=== PATIENT | male | born 1945 | race African-American/Black ===

== ENCOUNTER 2016-06-21 12:04 | Outpatient (CLI) | payer MEDICARE | END 2016-06-21 12:05 | disposition home or self-care (01) | LOC: NAVSJIPCSP 12:04 | PROVIDERS: ATTEND Internal Medicine | DX: E78.5 Hyperlipidemia, unspecified (principal) | CPT/HCPCS: 80061 ==

== ENCOUNTER 2016-09-30 09:16 | Outpatient (CLI) | payer MEDICARE ==
[2016-09-30 10:27] LABS: Cardiac Risk 2.9 (Less than 4.5)
== END 2016-09-30 09:17 | disposition home or self-care (01) ==
LOC: NAVSJIPCSP 09:16 → NAV LAB 09:17
PROVIDERS: ATTEND Internal Medicine
DX: E78.5 Hyperlipidemia, unspecified (principal); Z79.899 Other long term (current) drug therapy
CPT/HCPCS: 80061

== ENCOUNTER 2016-11-13 09:39 | Outpatient (CLI) | payer MEDICARE ==
--- NOTE | 2016-11-13 12:39 | ULT ---
LIMITED ULTRASOUND OF ABDOMINAL AORTA: Date: 11/13/16 HISTORY: Screening for abdominal aortic aneurysm. Abdominal bruit. TECHNIQUE: Multiplanar Wooten scale and color Doppler images were obtained in a limited ultrasound of the abdomin al aorta. FINDINGS: The aorta is normal in caliber without significant atherosclerotic calcified plaque. The aorta measu res 1.8 cm in its greatest dimension distally. No dissection is seen. The common iliac arteries are normal in caliber without evidence of aneurysmal dilatation. IMPRESSION: No evidence of abdominal aortic aneurysm. POS: XI
== END 2016-11-13 09:40 | disposition home or self-care (01) ==
LOC: NAV ULT 09:39
PROVIDERS: ATTEND Internal Medicine
DX: Z13.6 Encounter for screening for cardiovascular disorders (principal)
CPT/HCPCS: 76775

== ENCOUNTER 2016-12-30 09:21 | Outpatient (CLI) | payer MEDICARE ==
[2016-12-30 20:15] LABS: Cardiac Risk 2.8 (Less than 4.5)
== END 2016-12-30 09:22 ==
LOC: NAVSJIPCSP 09:21
PROVIDERS: ATTEND Internal Medicine
DX: E78.5 Hyperlipidemia, unspecified (principal)
CPT/HCPCS: 36415; 80061

== ENCOUNTER 2017-01-06 09:58 | Outpatient (CLI) | payer MEDICARE ==
[2017-01-06 17:56] LABS: Albumin (w/Testosterone Panel) 4.1 g/dL
[2017-01-06 18:21] LABS: Sex Hormone Binding Globulin 71.1 nmol/L (11-78); Testosterone, Free 104.4 pg/mL (47-244); Testosterone, Total 779.3 ng/dL (221-716)
== END 2017-01-06 09:59 | disposition home or self-care (01) ==
LOC: NAVSJIPCSP 09:58
PROVIDERS: ATTEND Internal Medicine
DX: N52.9 Male erectile dysfunction, unspecified (principal)
CPT/HCPCS: 36415; 84270; 84403

== ENCOUNTER 2018-04-23 12:07 | Emergency (ER) | payer MEDICARE | END 2018-04-23 12:59 | disposition home or self-care (01) | LOC: NAV ERS 12:07 | DX: S16.1XXA Strain of muscle, fascia and tendon at neck level, initial encounter (principal); J30.9 Allergic rhinitis, unspecified; E78.5 Hyperlipidemia, unspecified; I10 Essential (primary) hypertension; Z87.891 Personal history of nicotine dependence; Z79.899 Other long term (current) drug therapy; X58.XXXA Exposure to other specified factors, initial encounter | CPT/HCPCS: 99283 ==

== ENCOUNTER 2018-05-15 01:15 | Emergency (ER) | payer MEDICARE ==
[2018-05-15] MEDS ORDERED: Ondansetron PF 4 MG/2 ML Vial ONE (01:32)
[2018-05-15] MEDS ORDERED: Ketorolac Tromethamine 30 MG/ML VIAL ONE (01:32)
[2018-05-15 02:08] LABS: #Basophils 0.1 thou/uL (0.0-0.2); #Eosinphils 0.3 thou/uL (0.0-0.7); #Lymphocytes 1.8 thou/uL (1.20-3.40); #Monocytes 0.5 thou/uL (0.11-0.59); #Neutrophils 7.6 thou/uL (1.40-6.50); %Basophils 0.8 % (0.0-1.0); %Eosinophils 2.5 % (0.0-10.0); %Lymphocytes 17.6 % (21.0-51.0); %Monocytes 5.1 % (0.0-10.0); %Neutrophils 74.1 % (42.0-75.0); Hemoglobin 15.5 g/dL (14.0-18.0); Mean Corpuscular HGB CONC 31.3 g/dL (32.0-36.0); Mean Corpuscular Hemoglobin 28.9 pg (27.0-31.0); Mean Corpuscular Volume 92.6 fL (78.0-98.0); Platelet Count 240 thou/uL (130-400); RBC Distribution Width 13.2 % (11.5-14.5); Red Blood Cell (RBC) Count 5.36 mill/uL (4.70-6.10); White Blood Cell (WBC) Count 10.2 thou/uL (4.8-10.8)
[2018-05-15 02:24] LABS: ALT (SGPT) 28 U/L (8-55); AST (SGOT) 28 U/L (5-34); Albumin 4.7 g/dL (3.4-4.8); Alkaline Phosphatase 134 U/L (40-150); Anion Gap 18 mmol/L (10-20); BUN (Urea Nitrogen) 16 mg/dL (8.4-25.7); Bilirubin, Total 0.7 mg/dL (0.2-1.2); Calc. Creatinine Clearance 0 mL/min (70-130); Calcium 10.5 mg/dL (7.8-10.44); Carbon Dioxide 28 mmol/L (23-31); Chloride 100 mmol/L (98-107); Estimated GFR-MDRD 74; Globulin 3.6 g/dL (2.4-3.5); Glucose 123 mg/dL (80-115); Lipase 49 U/L (8-78); Potassium 3.8 mmol/L (3.5-5.1); Protein, Total 8.3 g/dL (5.8-8.1); Sodium 142 mmol/L (136-145)
== END 2018-05-15 03:05 | disposition home or self-care (01) ==
LOC: NAV ERS 01:15
DX: K52.9 Noninfective gastroenteritis and colitis, unspecified (principal); E78.5 Hyperlipidemia, unspecified; I10 Essential (primary) hypertension; Z87.891 Personal history of nicotine dependence; Z79.899 Other long term (current) drug therapy
CPT/HCPCS: 36415; 80053; 83690; 85025; 93005; 96372; 96374; 96375; J1885; J2405

== ENCOUNTER 2018-09-27 07:26 | Emergency (ER) | payer MEDICARE ==
[2018-09-27 07:43] LABS: #Basophils 0.1 thou/uL (0.0-0.2); #Eosinphils 0.3 thou/uL (0.0-0.7); #Lymphocytes 2.2 thou/uL (1.20-3.40); #Monocytes 0.6 thou/uL (0.11-0.59); %Basophils 1.4 % (0.0-1.0); %Eosinophils 5.4 % (0.0-10.0); %Lymphocytes 44.1 % (21.0-51.0); %Monocytes 10.8 % (0.0-10.0); %Neutrophils 38.4 % (42.0-75.0); Hemoglobin 14.2 g/dL (14.0-18.0); Mean Corpuscular HGB CONC 30.9 g/dL (32.0-36.0); Mean Corpuscular Hemoglobin 28.3 pg (27.0-31.0); Mean Corpuscular Volume 91.5 fL (78.0-98.0); Mean Platelet Volume 7.5 fL (7.4-10.4); Platelet Count 227 thou/uL (130-400); RBC Distribution Width 13.2 % (11.5-14.5); Red Blood Cell (RBC) Count 5.02 mill/uL (4.70-6.10); White Blood Cell (WBC) Count 5.1 thou/uL (4.8-10.8)
[2018-09-27] MEDS ORDERED: Pantoprazole 40 MG VIAL ONE (07:47)
[2018-09-27] MEDS ORDERED: Aspirin Chewable 81 MG TAB ONE (07:47)
[2018-09-27] MEDS ORDERED: Nitroglycerin 0.4 MG TAB (25 Tab Bottle) ONE (07:47)
[2018-09-27 07:56] LABS: ALT (SGPT) 17 U/L (8-55); AST (SGOT) 30 U/L (5-34); Albumin 4.1 g/dL (3.4-4.8); Alkaline Phosphatase 128 U/L (40-150); Anion Gap 16 mmol/L (10-20); BUN (Urea Nitrogen) 12 mg/dL (8.4-25.7); Bilirubin, Total 0.7 mg/dL (0.2-1.2); Calc. Creatinine Clearance 0 mL/min (70-130); Calcium 10.2 mg/dL (7.8-10.44); Carbon Dioxide 26 mmol/L (23-31); Chloride 102 mmol/L (98-107); Estimated GFR-MDRD 73; Globulin 3.2 g/dL (2.4-3.5); Glucose 82 mg/dL (83-110); Potassium 3.5 mmol/L (3.5-5.1); Protein, Total 7.3 g/dL (5.8-8.1); Sodium 140 mmol/L (136-145)
--- NOTE | 2018-09-27 07:58 | RAD ---
2 views chest. HISTORY: Chest pain. PA and lateral views of the chest is obtained. The lungs are well aerated. No evidence of active intrathoracic disease seen. No evidence of effusion s, pneumonia or pneumothorax seen. IMPRESSION: unremarkable 2 views chest.
== END 2018-09-27 09:08 | disposition short-term general hospital (02) ==
LOC: NAV ERS 07:26
DX: R07.89 Other chest pain (principal); I10 Essential (primary) hypertension; E78.5 Hyperlipidemia, unspecified; F32.9 Major depressive disorder, single episode, unspecified; Z79.899 Other long term (current) drug therapy
CPT/HCPCS: 71046; 80053; 83690; 83880; 84484; 85025; 93005; 94760; 96374; C9113

== ENCOUNTER 2021-01-09 15:17 | Emergency (ER) | payer BC, MEDICARE, OTHER | END 2021-01-09 15:58 | disposition home or self-care (01) | LOC: NAV ERS 15:17 | DX: M25.552 Pain in left hip (principal); R00.0 Tachycardia, unspecified; E78.5 Hyperlipidemia, unspecified; E78.00 Pure hypercholesterolemia, unspecified; I10 Essential (primary) hypertension; Z87.891 Personal history of nicotine dependence; Z79.899 Other long term (current) drug therapy; V89.2XXA Person injured in unspecified motor-vehicle accident, traffic, initial encounter | CPT/HCPCS: 93005 ==